=== PATIENT | male | born 1985 | race Caucasian/White ===

== ENCOUNTER 2024-06-28 17:38 | Emergency (ER) | payer MEDICAID, SELFPAY ==
[2024-06-28] VITALS (7 sets, daily range): BP systolic 106–137; BP diastolic 56–73; PULSE 64–73; RESP 16–18; TEMP 37.2–37.4; O2SAT 92–98; BMI 27.5
--- NOTE | 2024-06-28 18:10 | PC.NURSE ---
patient brought in by ambulance for syncopal episode patient stated he just felt really hot before the episode happened and he passed out. Patient stated no one witnessed the fall only complaint at the moment is his throat whenever he coughs. patient denies any neck pain/chest pain or difficulty breathing.
--- NOTE | 2024-06-28 18:17 | EKG_ITS ---
[facility] (Formerly [facility]) Test Date: 2024-06-28 Pat Name: FADIA HELLER Department: Room: - Gender: Male Physician Office Nurse: : 1985 Requested By: ED Temporary Provider Order Number: [id number] Reading MD: ED Temporary Provider Measurements Intervals Prosser Rate: 71 P: 65 MT: 171 QRS: 66 QRSD: 105 T: 55 QT: 352 QTc: 384 Interpretive Statements SINUS RHYTHM POSSIBLE RIGHT VENTRICULAR CONDUCTION DELAY [RSR (QR) IN V1/V2] Compared to ECG 08/03/2022 08:52:13 Sinus bradycardia no longer present /store/S0/[id number].pdf
--- NOTE | 2024-06-28 18:35 | EDNOTE_ITS ---
<Statement entered by Magalys Pal MD - 06/29/24 19:38> As co-signing physician, I was present and available for consult prn. I concur with the plan and care as documented by the midlevel provider. ED Syncope RME/HPI General Chief Complaint: Syncope / Near Syncope Stated Complaint: SYNCOPE EPISODE Time Seen by Provider: 06/28/24 18:30 Arrival date/time: 06/28/24 17:38 RME / HPI RME / HPI narrative: 39-year-old male patient with no significant past medical history, came in for evaluation regarding syncope. Patient was sitting in a chair, and felt sudden onset of feeling hot, dizzy, and the next time he remember he was already on the floor. Patient's been having sore throat, nonproductive cough for the last 1 to 2 days. Denies any fever. Denies any abdominal pain denies any chest pain denies any headache denies any neck pain. Patient also denies any upper or lower extremity weakness. Denies any history of similar episode in the past. Related Data Previous Rx's ?Medication ?Instructions ?Recorded ibuprofen 800 mg tablet 800 mg PO TID PRN pain #30 tabs 06/28/24 oseltamivir 75 mg capsule (Tamiflu) 75 mg PO BID 5 days #10 caps 06/28/24 Allergies Allergy/AdvReac Type Severity Reaction Status Date / Time No Known Allergies Allergy Verified 08/22/23 13:17 Review of Systems Review of Systems Narrative Review of Systems: Review of system reviewed and within normal limits except mentioned in HPI ED Exam Narrative Physical exam: VITAL SIGNS: Reviewed. GENERAL APPEARANCE: Alert and interactive, follows commands, no acute distress, HEAD AND FACE: Non-traumatic. ENT: PERRL, pink conjunctivitis, eyelid no trauma, Mucous membrane moist. NECK: Supple, nontender, no nuchal rigidity. CHEST: No tenderness, no crepitus, no paradoxical movement, no retractions. LUNGS: Clear, well ventilated, symmetric, no rales, no wheezing, no ronchi, no stridor, good breath sounds bilaterally. HEART: Regular rate, regular rhythm, no murmur, no gallops. ABDOMEN: Soft, positive bowel sounds, nondistended, no guarding, nontender, no rebound, no masses, RECTAL: Deferred. GENITAL: Deferred. NEUROLOGICAL: Gross motor function intact sensory function intact, Appropriate for age. MUSCULOSKELETAL: low back nontender, full range of motion. EXTREMITIES: Nontender, full range of motion. SKIN: Color pink, dry, no rash, no lacerations, no abrasions, no contusions. LYMPHATICS: Deferred. Course Quality Measures none Orders Category Date Time Status Bedside COVID-19 Antigen Test NOW Care 06/28/24 18:35 Active Bedside Influenza A&B Antigen Test NOW Care 06/28/24 18:35 Completed Customer Operations Manager STAT Care 06/28/24 18:19 Active EKG (ED ONLY) *Do not use* NOW Care 06/28/24 18:22 Completed Insert IV STAT Care 06/28/24 18:21 Active EKG (ED Only) Stat Exams 06/28/24 18:17 Draft CBC Stat Lab 06/28/24 18:44 Completed Comprehensive Metabolic Panel Stat Lab 06/28/24 18:44 Completed Strep A Rapid Stat Lab 06/28/24 19:00 Completed Troponin I Stat Lab 06/28/24 18:44 Completed Urinalysis Stat Lab 06/28/24 18:22 Ordered Ibuprofen Tab [Motrin Tab] Med 06/28/24 18:35 Discontinued 800 mg PO X1 ONE Oseltamivir [Tamiflu] Med 06/28/24 20:01 Discontinued 75 mg PO X1 ONE Vital Signs Vital signs: Vital Signs Temperature 99.3 F 06/28/24 17:42 Pulse Rate 65 06/28/24 17:42 Respiratory Rate 16 06/28/24 17:42 Blood Pressure 137/73 H 06/28/24 17:42 Pulse Oximetry (%) 93 L 06/28/24 17:42 Oxygen Delivery Method Room Air 06/28/24 17:42 Syncope MDM Narrative MDM Narrative:: 39-year-old male patient with no significant past medical history, came in for evaluation regarding syncope. Patient was sitting in a chair, and felt sudden onset of feeling hot, dizzy, and the next time he remember he was already on the floor. Patient's been having sore throat, nonproductive cough for the last 1 to 2 days. Denies any fever. Denies any abdominal pain denies any chest pain denies any headache denies any neck pain. Patient also denies any upper or lower extremity weakness. Denies any history of similar episode in the past. Patient tested positive for flu B. The rest of the labs unremarkable. No recurrence of syncope noted in the ED. Patient is ambulatory patient received Tamiflu in the emergency room. Was also given Motrin. Patient data External records reviewed:: None Clinical information provided by:: patient and family Social determinants that could affect healthcare access:: none Patient has the following chronic illnesses:: None How is presenting disease/condition affected by chronic disease/condition?: no chronic disease Evaluation data The following diagnostics were reviewed and interpreted by me:: lab results, radiology exam(s) and EKG tracing(s) Lab and/or radiology exams considered but not ordered:: None Interpretation Summary: Patient tested positive for flu B, CBC unremarkable CMP unremarkable, EKG showed normal sinus rhythm, ventricular rate of 71 bpm, no ST segment elevation depression noted. Medications / Prescriptions Medications or Prescriptions considered but not ordered:: None Medication administrations:: Medication Administration History Discontinued Medications Ibuprofen (Ibuprofen Tab 400 Mg Tablet) 800 mg PO X1 ONE Stop: 06/28/24 18:36 Last Admin: 06/28/24 18:49 Dose: 800 mg Documented By: EF Oseltamivir Phosphate (Oseltamivir 75 Mg Capsule) 75 mg PO X1 ONE Stop: 06/28/24 20:02 Last Admin: 06/28/24 20:10 Dose: 75 mg Documented By: CVL Tamiflu, Motrin Consultations Consultation(s) initiated? (list below): No Diagnosis Syncope Differential Diagnosis: vasovagal syncope and dehydration Most likely diagnosis given after review of the tests above:: Influenza, syncope, vasovagal Admission Indicated Admission indicated?: not indicated Explain why admission is indicated or not indicated:: Stable for discharge Admission Request Was there a request for admission?: No Disposition Plan Disposition Plan: Discharge Discharge Attestation Discharge Attestation: The patient and all family members were given an opportunity to ask questions and understood the discharge instructions. Discharge instructions specifically effects, indications for sooner follow up or return to the emergency department, and the expected course of current diagnosis. Patient condition: Stable Discharge Plan Plan Patient Disposition: HOME (Self Care) Disposition Comment: Stable Prescriptions/Referrals Prescriptions/Med Rec: New oseltamivir [Tamiflu] 75 mg capsule 75 mg PO BID 5 Days Qty: 10 0RF ibuprofen 800 mg tablet 800 mg PO TID PRN (Reason: pain) Qty: 30 0RF Referrals: No Primary/Family,Physician [Primary Care Provider] - In 1 week Problem List Clinical Impression: Vasovagal syncope, Influenza Patient/Caregiver Discharge Instructions Discharge Activity: activity as tolerated Education Materials: ED Influenza (Adult) Additional Instructions: Thank you for the opportunity for serving you today. You are stable for discharged . You are advised to: Follow-up with your PCP in 1 to 2 days Return to ED for worsening of symptoms Increase oral fluids Take medication as prescribed Print Language: Portuguese Stand Alone Forms: Lulu Award Info., Patient Portal Info Letter PA/BRAULIO Supervising Physician PA/BRAULIO Supervising Physician: MD Garett
[2024-06-28] MEDS: IBUPROFEN TAB 400 MG TABLET 800 MG PO (18:49)
[2024-06-28 19:37] LABS: Basophils % (Auto) 0 % (0-2.5); Eosinophils % (Auto) 0 % (0-10); Hematocrit 38.8 % (41.0-53.0); Hemoglobin 13.9 g/dL (13.5-16.0); Immature Granulocytes % (Auto) 0 % (0-0); Immature Granulocytes Auto 0.01 Thou/mm3 (0.00-0.00); Lymphocytes # (Auto) 1.5 Thou/mm3 (1.0-4.8); Lymphocytes % (Auto) 34 % (10-50); Mean Corpuscular HGB Conc 35.8 g/dl (31.0-37.0); Mean Corpuscular Hemoglobin 32.2 pg (25.0-35.0); Mean Corpuscular Volume 90 fL (80-100); Monocytes # (Auto) 0.6 Thou/mm3 (0.0-0.8); Monocytes % (Auto) 13 % (0-12); Neutrophils # (Auto) 2.4 Thou/mm3 (1.8-7.7); Neutrophils % (Auto) 53 % (37-80); Nucleated Red Blood Cell % 0 /100 WBC (0); Platelet Count 149 Thou/mm3 (140-440); RDW Standard Deviation 39.8 fL (35.1-43.9); Red Blood Count 4.32 Miln/mm3 (4.50-5.90); White Blood Count 4.5 Thou/mm3 (3.8-10.6)
[2024-06-28 19:53] LABS: Alanine Aminotransferase 81 U/L (10-49); Albumin, Serum 4.5 gm/dL (3.5-5.0); Albumin/Globulin Ratio 1.8 (1.2-2.2); Alkaline Phosphatase 55 U/L (46-116); Anion Gap 7 (7-16); Aspartate Amino Transferase 59 U/L (0-34); BUN/Creatinine Ratio 23 Ratio (12-20); Bilirubin,Total 0.4 mg/dL (0.3-1.2); Blood Urea Nitrogen 27 mg/dL (9-23); Calcium 9.1 mg/dL (8.3-10.6); Calcium (Corrected) 9.1 mg/dL (8.5-10.1); Carbon Dioxide 28.4 mMol/L (20.0-31.0); Chloride 99 mMol/L (98-107); Creatinine (Component) 1.2 mg/dL (0.6-1.3); Estimated Creatinine Clearance 100.7 mL/min (>60); Globulin 2.5 gm/dL (2.3-3.5); Glucose 100 mg/dL (74-106); Osmolality,Calculated 273 (275-295); Potassium 3.9 mMol/L (3.4-5.1); Sodium 134 mMol/L (136-145); Troponin I < 0.020 ng/mL (0.0-0.045); eGFR > 60 See Note
[2024-06-28] MEDS: OSELTAMIVIR 75 MG CAPSULE PO (20:10)
[2024-06-28 20:44] LABS: Strep A Rapid Negative (Negative)
== END 2024-06-28 21:12 | disposition home or self-care (01) ==
PROVIDERS: Nurse Practitioner Family; Emergency Provider Emergency Medicine
DX: J10.1 Influenza due to other identified influenza virus with other respiratory manifestations (principal); R94.31 Abnormal electrocardiogram [ECG] [EKG]
CPT/HCPCS: 36415; 80053; 81001; 84484; 85025; 87400; 87651; 87811; 93005; 99283; A9270